=== PATIENT | female | born 1975 | race Caucasian/White ===

== ENCOUNTER 2017-11-30 11:28 | Emergency (ER) | payer BC ==
--- NOTE | 2017-11-30 12:39 | UC ---
Skin Complaint HPI - HPI Summary HPI Summary: states she has swelling in groin for the past 3 days, denies chills and fever at home. LMD beginning of November 2017, , sexual intercourse once a week, denies shaving area, had laser hair removal 7 years ago. - History of Current Complaint Chief Complaint: UCGeneralIllness Time Seen by Provider: 11/30/17 12:21 Stated Complaint: PERSONAL Hx Obtained From: Patient Hx Last Menstrual Period: 11/20/17 ?: No Onset/Duration: Sudden Onset, Lasting Days Skin Exposure Onset/Duration: Days Ago Onset Severity: Mild Current Severity: Moderate Pain Intensity: 5 Location: Discrete, Other - left groin Character: Swelling, Pain Aggravating Factor(s): Nothing Alleviating Factor(s): Nothing Associated Signs & Symptoms: Positive: Negative Related History: Other: - microtrauma from sexual intercourse - Allergy/Home Medications Allergies/Adverse Reactions: Allergies Allergy/AdvReac Type Severity Reaction Status Date / Time Penicillins Allergy Unknown Verified 11/30/17 11:57 Reaction Details Sulfa (Sulfonamide Allergy Anaphylatic Verified 11/30/17 11:57 Antibiotics) Shock Review of Systems Constitutional: Negative Skin: Other - redness in groin All Other Systems Reviewed And Are Negative: Yes PMH/Surg Hx/FS Hx/Imm Hx Previously Healthy: Yes Psychological History: Depression - Surgical History Surgical History: None - Social History Alcohol Use: Rare Substance Use Type: None Smoking Status (MU): Never Smoked Tobacco Physical Exam Triage Information Reviewed: Yes Appearance: Well-Appearing, No Pain Distress, Well-Nourished Vital Signs: Initial Vital Signs Temp 99.1 F 11/30/17 11:49 Pulse 97 11/30/17 11:49 Resp 18 11/30/17 11:49 BP 116/69 11/30/17 11:49 Pulse Ox 97 11/30/17 11:49 Vital Signs Reviewed: Yes Eyes: Positive: Conjunctiva Clear ENT: Positive: Hearing grossly normal Neck: Positive: Supple Respiratory: Positive: Chest non-tender Cardiovascular: Positive: Pulses Normal, Brisk Capillary Refill Skin Exam: Other Skin: Positive: Other - induration and erythema of left labia majora without fluctuation, no external genital lesions, no vaginal d/c. No ulceration, no local LNE Course/Dx - Course Course Of Treatment: cellulitis left labia majora, start antibiotics as prescribed, warm compresses, oral hydration, probiotics, f/u with PCP, avoid sexual intercourse and shaving - Diagnoses Provider Diagnoses: cellulitis left groin Discharge - Sign-Out/Discharge Documenting (check all that apply): Discharge/Admit/Transfer - Discharge Plan Condition: Good Disposition: HOME Prescriptions: Clindamycin HCl 300 mg PO TID 7 Days #21 capsule Patient Education Materials: Cellulitis (DC), Clindamycin (By mouth) Referrals: LATOYA Jacques [Primary Care Provider] - - Billing Disposition and Condition Condition: GOOD Disposition: Home
--- NOTE | 2017-12-02 20:45 | UC ---
- Progress Note Progress Note: 12/02/2017 Urine culture: no growth. Pt Dx w/ Cellulitis and Rx Clindamycin PO. Please call pt back to make sure his cellulitis is improving. Rose Marie Leong PA-C Discharge - Sign-Out/Discharge Documenting (check all that apply): Discharge/Admit/Transfer - D/c home - Discharge Plan Condition: Good Disposition: HOME Prescriptions: Clindamycin HCl 300 mg PO TID 7 Days #21 capsule Patient Education Materials: Clindamycin (By mouth), Cellulitis (DC) Referrals: LATOYA Jacques [Primary Care Provider] - - Billing Disposition and Condition Condition: GOOD Disposition: Home
== END 2017-11-30 12:42 | disposition home or self-care (01) ==
LOC: UCEAST 11:28
DX: L03.314 Cellulitis of groin (principal); Z88.0 Allergy status to penicillin; Z88.2 Allergy status to sulfonamides; F32.9 Major depressive disorder, single episode, unspecified
CPT/HCPCS: 81003; 87086; 99202; G0463